=== PATIENT | female | born 1990 ===

== ENCOUNTER 2019-01-08 18:05 | Emergency (ER) | payer SELFPAY ==
[2019-01-08 20:46] LABS: Absolute Lymphocytes (CBC) 3.8 K/uL (0.7-4.9); Basophils % 0.7 % (0-1.3); Hematocrit 40.4 % (36.0-45.0); Lymphocytes % 33.9 % (15.3-44.8); MPV 11.3 fL (7.6-11.3); RBC Red Blood Cell Count 4.57 M/uL (3.86-4.86)
[2019-01-08 20:49] LABS: Urine Blood 3+ (NEG); Urine Glucose NEGATIVE (NEG); Urine Protein NEGATIVE (NEG)
[2019-01-08 21:00] LABS: BUN Blood Urea Nitrogen 7 mg/dL (7-18); Bicarbonate 29 mmol/L (21-32); Glucose Level 114 mg/dL (74-106); Potassium 3.7 mmol/L (3.5-5.1); Sodium Level 140 mmol/L (136-145)
--- NOTE | 2019-01-08 21:03 | RAD REPORT ---
EXAM DESCRIPTION: US - Transvaginal Study Probe - 01/08/2019 8:32 pm CLINICAL HISTORY: Vaginal bleeding COMPARISON: None. TECHNIQUE: Endovaginal sonography was performed. FINDINGS: Nabothian cysts are present. No solid myometrial mass. No discrete endometrial mass or shannon yp identifiable. Uterus is 9.5 x 4.7 x 4.2 cm. Endometrium is approximately 10 mm. No blood or fluid in the cul de sac. Both ovaries are identified with Doppler evaluation showed normal blood flow. No dominant solid or cy stic ovarian or adnexal finding. IMPRESSION: Endovaginal pelvic ultrasound shows no significant or suspicious finding.
--- NOTE | 2019-01-08 21:11 | ER ---
Nurse's Notes [facility] Name: Cori Tate Age: 28 yrs Sex: Female : 1990 Arrival Date: 01/08/2019 Time: 18:09 Bed 16 Private MD: Diagnosis: Abnormal uterine and vaginal bleeding, unspecified Presentation: 01/08 19:37 Presenting complaint: Patient states: Vaginal bleeding for the past 4 days, states that aj1 her normal period is at the beginning of the month, but she can't remember if she had her regular period this month. Patient also reports cramping and lower back pain. States that 2 days ago she passed a baseball sized clot, and the next day she passed another large clot. Since then she has not passed any more large clots, but her vaginal bleeding has been heavier than she normally experiences with her periods. Transition of care: patient was not received from another setting of care. Onset of symptoms was 2018. Risk Assessment: Do you want to hurt yourself or someone else? Patient reports no desire to harm self or others. Initial Sepsis Screen: Does the patient meet any 2 criteria? HR > 90 bpm. No. Patient's initial sepsis screen is negative. Does the patient have a suspected source of infection? No. Patient's initial sepsis screen is negative. Care prior to arrival: None. 19:37 Method Of Arrival: Ambulatory aj 19:37 Acuity: TREASURE 3 aj1 Triage Assessment: 19:40 General: Appears in no apparent distress. Behavior is cooperative, anxious, crying. aj1 Pain: Complains of pain in low back area, right lower quadrant and left lower quadrant. : Reports vaginal bleeding that is bright red, with clots. 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 - Social history:: Smoking status: Patient uses tobacco products, denies chronic smoking, but will smoke occasionally. - Ebola Screening: : Patient denies travel to an Ebola-affected area in the 21 days before illness onset. Screenin:41 Abuse screen: Denies threats or abuse. Denies injuries from another. Nutritional aj1 screening: No deficits noted. Tuberculosis screening: No symptoms or risk factors identified. 21:30 Fall Risk None identified. aj1 Assessment: 19:41 Obstetrical Assessment: Patient reports abdominal cramping, back pain. General: Appears aj1 in no apparent distress. General: Behavior is cooperative, anxious, crying. Pain: Complains of pain in left lower quadrant and right lower quadrant and low back area Pain does not radiate. Pain currently is 3 out of 10 on a pain scale. Quality of pain is described as crampy, Pain began 4 days ago. Neuro: Level of Consciousness is awake, alert, obeys commands, Oriented to person, place, time, situation. Cardiovascular: Patient's skin is warm and dry. Respiratory: Airway is patent Respiratory effort is even, unlabored, Respiratory pattern is regular, symmetrical. GI: No signs and/or symptoms were reported involving the gastrointestinal system. : Reports vaginal bleeding that is bright red, with clots. EENT: No signs and/or symptoms were reported regarding the EENT system. Derm: No signs and/or symptoms reported regarding the dermatologic system. Skin is pink, warm \T\ dry. normal. Musculoskeletal: No signs and/or symptoms reported regarding the musculoskeletal system. Circulation, motion, and sensation intact. 20:51 Reassessment: Patient appears in no apparent distress at this time. No changes from aj1 previously documented assessment. Patient and/or family updated on plan of care and expected duration. Pain level reassessed. Patient is alert, oriented x 3, equal unlabored respirations, skin warm/dry/pink. 21:29 Reassessment: Patient appears in no apparent distress at this time. No changes from aj1 previously documented assessment. Patient and/or family updated on plan of care and expected duration. Pain level reassessed. Patient is alert, oriented x 3, equal unlabored respirations, skin warm/dry/pink. Vital Signs: 19:40 BP 139 / 103; Pulse 102; Resp 18; Temp 98.4; Pulse Ox 100% on R/A; Weight 74.84 kg (R); aj1 Height 5 ft. 0 in. (152.40 cm) (R); Pain 3/10; 20:51 BP 117 / 71; Pulse 97; Resp 18; Pulse Ox 99% on R/A; aj1 19:40 Body Mass Index 32.22 (74.84 kg, 152.40 cm) aj1 ED Course: 18:09 Patient arrived in ED. cl3 19:20 Magali Washington [facility] kb 19:20 Michael Ying MD is Attending Physician. kb 19:37 Viji Rich, RN is Primary Nurse. aj1 19:39 Triage completed. aj1 19:40 Arm band placed on Patient placed in an exam room. aj1 19:41 Patient has correct armband on for positive identification. Bed in low position. Call aj light in reach. Side rails up X 1. 19:41 No provider procedures requiring assistance completed. aj1 20:35 Initial lab(s) drawn, by me, sent to lab. Inserted saline lock: 20 gauge in left aj1 antecubital area, using aseptic technique. Blood collected. 21:30 IV discontinued, intact, bleeding controlled, No redness/swelling at site. Pressure aj1 dressing applied. Administered Medications: No medications were administered Point of Care Testing: Urine : 21:30 hCG Reading: Negative; Control Reading: Positive; aj1 Outcome: 21:10 Discharge ordered by . kb 21:31 Discharged to home ambulatory. aj1 21:31 Condition: good 21:31 Discharge instructions given to patient, Instructed on discharge instructions, follow up and referral plans. Demonstrated understanding of instructions, follow-up care. 21:31 Patient left the ED. aj1 Signatures: Magali Washington FNP-C FNP-Viji Camacho, RN RN aj1 Yusuf Mcgraw cl3
--- NOTE | 2019-01-08 21:12 | EDPHYS ---
Physician Documentation [facility] Name: Cori Tate Age: 28 yrs Sex: Female : 1990 Arrival Date: 01/08/2019 Time: 18:09 Bed 16 Private MD: ED Physician Michael Ying HPI: 01/08 21:08 This 28 yrs old Female presents to ER via Ambulatory with complaints of Vaginal kb Bleeding, + Preg <12wks. 21:08 The patient presents with vaginal bleeding that is heavy, with clots. Onset: The kb symptoms/episode began/occurred 4 day(s) ago. Modifying factors: The symptoms are alleviated by nothing, the symptoms are aggravated by nothing. Associated signs and symptoms: Pertinent positives: vaginal bleeding. Severity of symptoms: At their worst the symptoms were moderate, in the emergency department the symptoms are unchanged. The patient has not experienced similar symptoms in the past. The patient has not recently seen a physician. Pt reports heavy vaginal bleeding with clots for 4 days. Came in because she doesn't normally have heavy periods and the clots are bigger than she is used to. 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 - Social history:: Smoking status: Patient uses tobacco products, denies chronic smoking, but will smoke occasionally. - Ebola Screening: : Patient denies travel to an Ebola-affected area in the 21 days before illness onset. ROS: 21:10 Constitutional: Negative for fever, chills, and weight loss, ENT: Negative for injury, kb pain, and discharge, Neck: Negative for injury, pain, and swelling, Cardiovascular: Negative for chest pain, palpitations, and edema, Respiratory: Negative for shortness of breath, cough, wheezing, and pleuritic chest pain, Abdomen/GI: Negative for abdominal pain, nausea, vomiting, diarrhea, and constipation, Back: Negative for injury and pain, MS/Extremity: Negative for injury and deformity, Skin: Negative for injury, rash, and discoloration, Neuro: Negative for headache, weakness, numbness, tingling, and seizure. 21:10 : Positive for vaginal bleeding. Exam: 21:10 Constitutional: This is a well developed, well nourished patient who is awake, alert, kb and in no acute distress. Head/Face: Normocephalic, atraumatic. ENT: Nares patent. No nasal discharge, no septal abnormalities noted. Tympanic membranes are normal and external auditory canals are clear. Oropharynx with no redness, swelling, or masses, exudates, or evidence of obstruction, uvula midline. Mucous membranes moist. Neck: Trachea midline, no thyromegaly or masses palpated, and no cervical lymphadenopathy. Supple, full range of motion without nuchal rigidity, or vertebral point tenderness. No Meningismus. Chest/axilla: Normal chest wall appearance and motion. Nontender with no deformity. No lesions are appreciated. Cardiovascular: Regular rate and rhythm with a normal S1 and S2. No gallops, murmurs, or rubs. Normal PMI, no JVD. No pulse deficits. Respiratory: Lungs have equal breath sounds bilaterally, clear to auscultation and percussion. No rales, rhonchi or wheezes noted. No increased work of breathing, no retractions or nasal flaring. Abdomen/GI: Soft, non-tender, with normal bowel sounds. No distension or tympany. No guarding or rebound. No evidence of tenderness throughout. Skin: Warm, dry with normal turgor. Normal color with no rashes, no lesions, and no evidence of cellulitis. MS/ Extremity: Pulses equal, no cyanosis. Neurovascular intact. Full, normal range of motion. Neuro: Awake and alert, GCS 15, oriented to person, place, time, and situation. Cranial nerves II-XII grossly intact. Motor strength 5/5 in all extremities. Sensory grossly intact. Cerebellar exam normal. Normal gait. Vital Signs: 19:40 BP 139 / 103; Pulse 102; Resp 18; Temp 98.4; Pulse Ox 100% on R/A; Weight 74.84 kg (R); aj1 Height 5 ft. 0 in. (152.40 cm) (R); Pain 3/10; 20:51 BP 117 / 71; Pulse 97; Resp 18; Pulse Ox 99% on R/A; aj1 19:40 Body Mass Index 32.22 (74.84 kg, 152.40 cm) aj1 MDM: 19:21 Patient medically screened. kb 21:07 Data reviewed: vital signs, nurses notes. Data interpreted: Pulse oximetry: on room air kb is 99 %. Interpretation: normal. Counseling: I had a detailed discussion with the patient and/or guardian regarding: the historical points, exam findings, and any diagnostic results supporting the discharge/admit diagnosis, lab results, radiology results, the need for outpatient follow up, an OB/Gyne specialist, to return to the emergency department if symptoms worsen or persist or if there are any questions or concerns that arise at home. 01/08 19:39 Order name: CBC with Diff kb 01/08 19:39 Order name: Basic Metabolic Panel 01/08 19:40 Order name: Urine --Ancillary (enter results) 01/08 19:40 Order name: Urine Dipstick--Ancillary (enter results) 01/08 20:49 Order name: Urine --Ancillary; Complete Time: 20:53 EDPA 01/08 20:49 Order name: Urine Dipstick-Ancillary; Complete Time: 20:53 EDPA 01/08 19:39 Order name: IV Start; Complete Time: 20:45 01/08 19:39 Order name: US Transvaginal Study (Probe) 01/08 20:51 Order name: CBC with Automated Diff; Complete Time: 20:53 EDMS 01/08 21:01 Order name: Basic Metabolic Panel; Complete Time: 21:01 EDPA 01/08 21:06 Order name: US; Complete Time: 21:07 EDMS Administered Medications: No medications were administered Point of Care Testing: Urine : 21:30 hCG Reading: Negative; Control Reading: Positive; aj1 Disposition: 01/08/19 21:10 Discharged to Home. Impression: Abnormal uterine and vaginal bleeding, unspecified. - Condition is Stable. - Discharge Instructions: Abnormal Uterine Bleeding, [id number]. - Medication Reconciliation Form, Thank You Letter, Antibiotic Education, Prescription Opioid Use form. - Follow up: Emergency Department; When: As needed; Reason: Worsening of condition. Follow up: Private Physician; When: 2 - 3 days; Reason: Recheck today's complaints, Continuance of care, Re-evaluation by your physician. Addendum: 01/11/2019 10:16 Co-signature as Attending Physician, Michael Ying MD I agree with the assessment and k dr plan of care. Signatures: Dispatcher [employer] Magali Woods, WILLIAM-Sri FARAHP-Viji Camacho, RN RN aj1 Michael Ying MD MD kdr Corrections: (The following items were deleted from the chart) 01/08 21:31 21:10 01/08/2019 21:10 Discharged to Home. Impression: Abnormal uterine and vaginal aj1 bleeding, unspecified. Condition is Stable. Forms are Medication Reconciliation Form, Thank You Letter, Antibiotic Education, Prescription Opioid Use. Follow up: Emergency Department; When: As needed; Reason: Worsening of condition. Follow up: Private Physician; When: 2 - 3 days; Reason: Recheck today's complaints, Continuance of care, Re-evaluation by your physician. kb
[2019-01-09 03:01] VITALS: TEMP 98.4
[2019-01-09 03:03] VITALS: BP 117/71; O2SAT 99
== END 2019-01-08 21:31 | disposition home or self-care (01) ==
LOC: ER 18:05
DX: N93.9 Abnormal uterine and vaginal bleeding, unspecified (principal); F17.210 Nicotine dependence, cigarettes, uncomplicated
CPT/HCPCS: 36415; 76830; 80048; 81003; 81025; 85025; 99283

== ENCOUNTER 2019-10-19 20:30 | Emergency (ER) | payer OTHER, SELFPAY ==
[2019-10-19] MEDS ORDERED: PROMETHAZINE INJ 25 MG/ML AMP ONE (21:11)
[2019-10-19] MEDS ORDERED: NA CHLORIDE 0.9% 1,000 ML ONE (21:11)
[2019-10-19 21:17] LABS: Urine Blood NEGATIVE (NEG); Urine Glucose NEGATIVE (NEG); Urine Protein 1+ (NEG); Urine Specific Gravity >1.030 (1.005-1.030)
[2019-10-19 21:20] LABS: Absolute Lymphocytes (CBC) 3.1 K/uL (0.7-4.9); Basophils % 0.8 % (0-1.3); Hematocrit 40.6 % (36.0-45.0); Lymphocytes % 26.2 % (15.3-44.8); RBC Red Blood Cell Count 4.69 M/uL (3.86-4.86)
[2019-10-19 21:40] LABS: BUN Blood Urea Nitrogen 9 mg/dL (7-18); Bicarbonate 24 mmol/L (21-32); Glucose Level 92 mg/dL (74-106); Potassium 3.8 mmol/L (3.5-5.1); Sodium Level 138 mmol/L (136-145)
--- NOTE | 2019-10-19 21:54 | ER ---
Nurse's Notes [facility] Name: Cori Tate Age: 28 yrs Sex: Female : 1990 Arrival Date: 10/19/2019 Time: 20:33 Bed 5 Private MD: Diagnosis: Lower abdominal pain, unspecified;10 weeks gestation of ;Nausea and vomiting Presentation: 10/18 20:41 Chief complaint: Patient states: C/O abdominal pain that comes and goes specially wh during bowel movements that started today. Pt also C/O nausea and vomiting for a few days. Pt states 12 week last seen OB 3 weeks ago. Coronavirus screen: Client denies travel out of the [place] in the last 14 days. nausea, vomiting. Ebola Screen: Patient negative for fever greater than or equal to 101.5 degrees Fahrenheit, and additional compatible Ebola Virus Disease symptoms Patient denies exposure to infectious person. Initial Sepsis Screen: Does the patient meet any 2 criteria? No. Patient's initial sepsis screen is negative. Does the patient have a suspected source of infection? Yes: Acute abdominal pain. Risk Assessment: Do you want to hurt yourself or someone else? Patient reports no desire to harm self or others. Onset of symptoms was October 19, 2019. 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 - Social history:: Smoking status: Patient/guardian denies using alcohol, street drugs. Screenin:45 Abuse screen: Denies threats or abuse. Denies injuries from another. Nutritional screening: No deficits noted. Tuberculosis screening: No symptoms or risk factors identified. Fall Risk None identified. Assessment: 21:00 General: Appears in no apparent distress. comfortable, Behavior is calm, cooperative, rr5 appropriate for age. 21:00 Pain: Complains of pain in abdomen Quality of pain is described as aching, Pain began rr5 gradually, Is intermittent. Neuro: Level of Consciousness is awake, alert, obeys commands, Oriented to person, place, time, situation. Cardiovascular: Capillary refill < 3 seconds Patient's skin is warm and dry. Respiratory: Airway is patent Respiratory effort is even, unlabored, Respiratory pattern is regular, symmetrical. GI: Abdomen is round non-distended, Bowel sounds present X 4 quads. Abd is soft and non tender. : Reports 12 weeks . EENT: No signs and/or symptoms were reported regarding the EENT system. Derm: Skin is intact, is healthy with good turgor, Skin temperature is warm. Musculoskeletal: Circulation, motion, and sensation intact. Capillary refill < 3 seconds. 21:43 Reassessment: Patient appears in no apparent distress at this time. ultrasound at rr5 bedside. 22:10 Reassessment: Patient appears in no apparent distress at this time. Patient is alert, rr5 oriented x 3, equal unlabored respirations, skin warm/dry/pink. PO challenge done no nausea or vomiting reported. discharge instruction given and explained without complaints made Patient states symptoms have improved. Vital Signs: 20:41 BP 131 / 94; Pulse 89; Resp 18; Temp 98.4; Weight 78.47 kg; Height 5 ft. (152.40 cm); wh 21:30 BP 126 / 79; Pulse 75; Resp 17; Pulse Ox 98% ; rr5 22:11 BP 110 / 88; Pulse 85; Resp 16; Pulse Ox 100% on R/A; rr5 20:41 Body Mass Index 33.79 (78.47 kg, 152.40 cm) ED Course: 20:33 Patient arrived in ED. cl3 20:41 Pavel Ramirez RN is Primary Nurse. rr5 20:45 Triage completed. wh 20:46 Arm band placed on right wrist. wh 20:48 Magali Washington FNP-C is PHCP. kb 20:48 Chintan Torres MD is Attending Physician. kb 21:00 Patient has correct armband on for positive identification. Bed in low position. Call rr5 light in reach. Pulse ox on. NIBP on. 21:08 No provider procedures requiring assistance completed. Urine collected: clean catch rr5 specimen, clear. 21:20 Inserted saline lock: 20 gauge in right antecubital area, using aseptic technique. vc Blood collected. 22:08 1St Trimest Single 1St Fetus In Process Unspecified. EDMS 22:11 IV discontinued, intact, bleeding controlled, No redness/swelling at site. Pressure rr5 dressing applied. Administered Medications: 21:19 Drug: Phenergan 6.25 mg Route: IVP; Site: right antecubital; vc 22:00 Follow up: Response: No adverse reaction; Marked relief of symptoms rr5 21:20 Drug: NS 0.9% 1000 ml Route: IV; Rate: 1000 ml; Site: right antecubital; vc 22:12 Follow up: Response: No adverse reaction; IV Status: Order to discontinue infusion; IV rr5 Intake: 600ml Intake: 22:12 IV: 600ml; Total: 600ml. rr5 Outcome: 21:54 Discharge ordered by . [email or web address] 22:11 Discharged to home ambulatory. rr5 22:11 Condition: stable 22:11 Discharge instructions given to patient, Instructed on discharge instructions, follow up and referral plans. Demonstrated understanding of instructions, follow-up care. 22:13 Patient left the ED. rr5 Signatures: Dispatcher [employer] EDMS Magali Washington, REINFORCING STEEL PLACER-C REINFORCING STEEL PLACER-Ariel Palacio Raymond, RN RN rr5 Yusuf cMgraw cl3 Rosaura Ratliff RN RN vc
--- NOTE | 2019-10-19 21:54 | EDPHYS ---
Physician Documentation [facility] Name: Cori Tate Age: 28 yrs Sex: Female : 1990 Arrival Date: 10/19/2019 Time: 20:33 Bed 5 Private MD: ED Physician Chintan Torers HPI: 10/18 21:26 This 28 yrs old Female presents to ER via Ambulatory with complaints of Abdominal Pain. kb 21:26 The patient presents with abdominal pain in the lower abdomen. The symptoms do not kb radiate. The patient has not experienced similar symptoms in the past. The patient has not recently seen a physician. 21:26 Onset: The symptoms/episode began/occurred today. Associated signs and symptoms: kb Pertinent positives: nausea and vomiting, Pertinent negatives: anorexia, blood in stools, chest pain, constipation, diarrhea, dysuria, fever, headache, hematuria, palpitations, shortness of breath, vaginal discharge, vomiting blood. The symptoms are described as intermittent. Modifying factors: The symptoms are alleviated by nothing, the symptoms are aggravated by bowel movements. Severity of pain: At its worst the pain was mild moderate in the emergency department the pain is unchanged. 21:53 LMP 08/03/19, G5. 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 - Social history:: Smoking status: Patient/guardian denies using alcohol, street drugs. ROS: 21:25 Constitutional: Negative for fever, chills, and weight loss, Cardiovascular: Negative kb for chest pain, palpitations, and edema, Respiratory: Negative for shortness of breath, cough, wheezing, and pleuritic chest pain, Back: Negative for injury and pain, MS/Extremity: Negative for injury and deformity, Skin: Negative for injury, rash, and discoloration, Neuro: Negative for headache, weakness, numbness, tingling, and seizure. 21:25 Abdomen/GI: Positive for abdominal pain, nausea and vomiting, Negative for diarrhea, constipation, abdominal cramps, abdominal distension, anorexia. Exam: 21:25 Constitutional: This is a well developed, well nourished patient who is awake, alert, kb and in no acute distress. Head/Face: Normocephalic, atraumatic. Chest/axilla: Normal chest wall appearance and motion. Nontender with no deformity. No lesions are appreciated. Cardiovascular: Regular rate and rhythm with a normal S1 and S2. No gallops, murmurs, or rubs. Normal PMI, no JVD. No pulse deficits. Respiratory: Lungs have equal breath sounds bilaterally, clear to auscultation and percussion. No rales, rhonchi or wheezes noted. No increased work of breathing, no retractions or nasal flaring. Back: No spinal tenderness. No costovertebral tenderness. Full range of motion. Skin: Warm, dry with normal turgor. Normal color with no rashes, no lesions, and no evidence of cellulitis. MS/ Extremity: Pulses equal, no cyanosis. Neurovascular intact. Full, normal range of motion. Neuro: Awake and alert, GCS 15, oriented to person, place, time, and situation. Cranial nerves II-XII grossly intact. Motor strength 5/5 in all extremities. Sensory grossly intact. Cerebellar exam normal. Normal gait. 21:25 Abdomen/GI: Inspection: abdomen appears normal, Bowel sounds: normal, in all quadrants, Palpation: soft, in all quadrants, mild abdominal tenderness, in the right lower quadrant and left lower quadrant. Vital Signs: 20:41 BP 131 / 94; Pulse 89; Resp 18; Temp 98.4; Weight 78.47 kg; Height 5 ft. (152.40 cm); wh 21:30 BP 126 / 79; Pulse 75; Resp 17; Pulse Ox 98% ; rr5 22:11 BP 110 / 88; Pulse 85; Resp 16; Pulse Ox 100% on R/A; rr5 20:41 Body Mass Index 33.79 (78.47 kg, 152.40 cm) MDM: 20:48 Patient medically screened. kb 21:25 Data reviewed: vital signs, nurses notes. Data interpreted: Pulse oximetry: on room air kb is 100 %. Interpretation: normal. 21:27 Counseling: I had a detailed discussion with the patient and/or guardian regarding: the kb historical points, exam findings, and any diagnostic results supporting the discharge/admit diagnosis, lab results, radiology results, the need for outpatient follow up, an OB/Gyne specialist, to return to the emergency department if symptoms worsen or persist or if there are any questions or concerns that arise at home. 10/18 20:57 Order name: Quantitative Hcg; Complete Time: 21:55 kb 10/18 20:57 Order name: Abo/rh Typing; Complete Time: 21:46 kb 10/18 20:57 Order name: Basic Metabolic Panel; Complete Time: 21:55 kb 10/18 20:57 Order name: CBC with Diff; Complete Time: 21:34 kb 10/18 21:10 Order name: Urine Dipstick--Ancillary (enter results); Complete Time: 21:18 mw2 10/18 21:10 Order name: Urine --Ancillary (enter results); Complete Time: 21:18 mw2 10/18 20:57 Order name: IV Saline Lock; Complete Time: 21:14 kb 10/18 20:57 Order name: Labs collected and sent; Complete Time: 21:08 kb 10/18 20:57 Order name: NPO; Complete Time: 21:08 kb 10/18 20:57 Order name: Urine Dipstick-Ancillary (obtain specimen); Complete Time: 21:08 kb 10/18 22:08 Order name: 1St Trimest Single 1St Fetus EDMS 10/18 21:53 Order name: PO challenge; Complete Time: 22:12 kb Administered Medications: 21:19 Drug: Phenergan 6.25 mg Route: IVP; Site: right antecubital; vc 22:00 Follow up: Response: No adverse reaction; Marked relief of symptoms rr5 21:20 Drug: NS 0.9% 1000 ml Route: IV; Rate: 1000 ml; Site: right antecubital; vc 22:12 Follow up: Response: No adverse reaction; IV Status: Order to discontinue infusion; IV rr5 Intake: 600ml Disposition: 10/19 02:59 Co-signature as Attending Physician, Chintan Torres MD. [email or web address] Disposition: 10/19/19 21:54 Discharged to Home. Impression: Lower abdominal pain, unspecified, 10 weeks gestation of , Nausea and vomiting. - Condition is Stable. - Discharge Instructions: Morning Sickness, [id number], Abdominal Pain During , [id number]. - Medication Reconciliation Form, Thank You Letter, Antibiotic Education, Prescription Opioid Use form. - Follow up: Emergency Department; When: As needed; Reason: Worsening of condition. Follow up: Private Physician; When: 2 - 3 days; Reason: Recheck today's complaints, Continuance of care, Re-evaluation by your physician. Signatures: Dispatcher [employer] EDRI Magali [place], TANK CAR MECHANIC-C TANK CAR MECHANIC-Ckb Ariel Rosales Raymond RN RN rr5 Rosaura Ratliff RN RN Chintan Torres MD MD [email or web address] Corrections: (The following items were deleted from the chart) 10/18 22:08 20:58 Transvaginal Ob+US.RAD.BRZ ordered. [facility] 22:13 21:54 10/19/2019 21:54 Discharged to Home. Impression: Lower abdominal pain, rr5 unspecified; 10 weeks gestation of ; Nausea and vomiting. Condition is Stable. Forms are Medication Reconciliation Form, Thank You Letter, Antibiotic Education, Prescription Opioid Use. Follow up: Emergency Department; When: As needed; Reason: Worsening of condition. Follow up: Private Physician; When: 2 - 3 days; Reason: Recheck today's complaints, Continuance of care, Re-evaluation by your physician. kb
[2019-10-19 21:55] LABS: HCG, Quantitative 65216 mIU/mL (1-3)
[2019-10-20 00:52] VITALS: TEMP 98.4
[2019-10-20 00:54] VITALS: BP 110/88; O2SAT 100
--- NOTE | 2019-10-20 07:37 | RAD REPORT ---
EXAM DESCRIPTION: US - 1St Trimest Single 1St Fetus - 10/19/2019 10:12 pm CLINICAL HISTORY: Abdominal pain. COMPARISON: None FINDINGS: The uterus measures 13 x 8 x 9 centimeters. Normal appearing gestational sac. pole w ith a crown-rump length 3.7 centimeters is present. Cardiac activity 169 beats per minute. The right ovary is normal in size and echotexture. Left ovary was not seen secondary to overlying bow el gas The right and left adnexal unremarkable No significant free fluid IMPRESSION: Single live intrauterine with an estimated gestational age 10 weeks 3 days DAVID 05/13/2020
== END 2019-10-19 22:13 | disposition home or self-care (01) ==
LOC: ER 20:30
DX: O21.9 Vomiting of pregnancy, unspecified (principal); Z3A.10 10 weeks gestation of pregnancy
CPT/HCPCS: 96361; 85025; 80048; 36415; 86900; 81025; 86901; 84702; 81003; 76801; 96374; 99284; J2550; J7030